=== PATIENT | male | born 1995 | race Caucasian/White ===

== ENCOUNTER 2018-03-15 18:12 | Emergency (ER) | payer BC, OTHER ==
[2018-03-15 18:27] VITALS: BP 126/77; PULSE 87; TEMP 98.7; BMI 26.5
[2018-03-15] MEDS ORDERED: DIPHTH,PERTUSS(ACELL),TET 0.5 ML DISP.SYRIN IM ONE ×2 (18:28→18:29)
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
== END 2018-03-15 20:29 | disposition home or self-care (01) ==
LOC: FER 18:12
PROC: 3E0234Z Introduction of Serum, Toxoid and Vaccine into Muscle, Percutaneous Approach (ICD-10-PCS; principal; 2018-03-15)
DX: S00.83XA Contusion of other part of head, initial encounter (principal); S00.81XA Abrasion of other part of head, initial encounter; Y04.2XXA Assault by strike against or bumped into by another person, initial encounter; Y93.89 Activity, other specified; Y92.810 Car as the place of occurrence of the external cause
CPT/HCPCS: 70450-TC; 70486-TC; 90715; 99281-25